=== PATIENT | male | born 1990 | race African-American/Black ===

== ENCOUNTER 2024-06-30 22:08 | Emergency (ER) | payer OTHER, MEDICAID ==
[~2024-06-30] VITALS: Ht 175.3 cm; Wt 73.0 kg
[2024-06-30 22:20] VITALS: O2SAT 100
[2024-06-30 22:39] VITALS: BP 144/75; PULSE 84; RESP 20; TEMP 97.9; O2SAT 99
[2024-07-01] MEDS ORDERED: ACETAMINOPHEN WITH CODEINE 300/30MG TABLET PO ONE (00:45)
[2024-07-01] MEDS ORDERED: ACETAMINOPHEN WITH CODEINE 300/30MG TABLET PO NR (01:30)
== END 2024-07-01 01:35 | disposition left against medical advice (07) ==
LOC: ER 22:08
DX: S50.12XA Contusion of left forearm, initial encounter (principal); S09.90XA Unspecified injury of head, initial encounter; V49.59XA Passenger injured in collision with other motor vehicles in traffic accident, initial encounter; Y93.89 Activity, other specified; Y92.89 Other specified places as the place of occurrence of the external cause; Y99.8 Other external cause status
CPT/HCPCS: 99281